=== PATIENT | female | born 2005 | race Caucasian/White ===

== ENCOUNTER 2025-02-17 23:20 | Emergency (ER) | payer MEDICAID, SELFPAY ==
[2025-02-18 00:02] VITALS: BP 109/64; BP 130/90; PULSE 105; PULSE 125; RESP 18; TEMP 37.1; O2SAT 95; O2SAT 98; BMI 22.7
[2025-02-18 00:05] LABS: UPreg QC Valid YES
[2025-02-18 00:15] LABS: MANUAL DIFF FLAG NO
[2025-02-18 00:16] LABS: Hematocrit 39.3 % (37.0-47.0); Hemoglobin 13.7 g/dl (12.0-16.0); Imm Gran Abs Auto 0.04 X10*3/uL (0.00-0.03); Imm Gran Pct Auto 0.4 % (0.0-0.4); Lymphocytes Absolute Auto 1.8 X10*3/uL (1.2-4.9); Mean Corpuscular HGB Conc 34.9 g/dl (31.0-35.0); Mean Corpuscular Hemoglobin 29.5 pg (27.0-33.0); Mean Corpuscular Volume 84.5 fL (80.0-98.0); NRBC Abs Auto 0.000 X10*3/uL (0.0-0.012); NRBC Pct Auto 0.0 /100WBC (0.0-0.2); Platelet Count 221 X10*3/uL (160-400); Red Blood Count 4.65 X10*6/uL (4.20-5.50); White Blood Count 9.7 X10*3/uL (4.8-10.8)
[2025-02-18 00:23] LABS: Cannabinoid Screen Urine Not Detected (Not Detect)
[2025-02-18 00:33] LABS: Acetaminophen LAB < 3 mcg/mL (<30); Alanine Aminotransferase 15 U/L (0-31); Albumin Level 4.5 g/dL (3.5-5.0); Alkaline Phosphatase 60 U/L (39-117); Anion Gap 11 (12-20); Aspartate Amino Transferase 21 U/L (5-31); Blood Urea Nitrogen 16 mg/dL (9-16); Calcium 9.0 mg/dL (8.4-10.2); Carbon Dioxide 22 mmol/L (22-29); Chloride 111 mmol/L (96-108); Creatinine Clr Calc Pharmacy 115.1; Estimated Glomerular Filt Rate > 60; Potassium 3.5 mmol/L (3.3-5.1); Salicylate < 5.0 mg/dL (15-30); Sodium 140 mmol/L (135-145); Total Protein 7.8 g/dL (6.5-8.0)
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
--- NOTE | 2025-02-18 05:39 | PC.NURSE ---
Pt has been sleeping most of the shift without issue. Changes positions independently as desired. Pt is easily arousable with verbal stimuli, startles easily. No needs verbalized at this time and no acute distress is observed. Safety checks continue every 15 min. Will continue to monitor for any changes. Care team evaluation pending.
[2025-02-18 07:56] VITALS: RESP 14
--- NOTE | 2025-02-18 07:59 | PC.NURSE ---
Assumed care of patient at 0645, patient appears to be in no apparent distress this am, resting comfortably on bed, offering no complaints to this RN. Continue plan of care for CARE team samanta
[2025-02-18 08:22] VITALS: BP 108/65; PULSE 85; RESP 16; TEMP 36.8; O2SAT 96
[2025-02-18 09:07] VITALS: BP 108/65; PULSE 85; RESP 16; TEMP 36.8; O2SAT 96
--- NOTE | 2025-02-18 10:36 | MHC.CARE ---
[facility] REFERRAL COMPLETE
== END 2025-02-18 09:40 | disposition home or self-care (01) ==
PROVIDERS: Emergency Provider Emergency Medicine
DX: R45.851 Suicidal ideations (principal); F41.1 Generalized anxiety disorder; F43.0 Acute stress reaction; Z51.81 Encounter for therapeutic drug level monitoring; Z79.899 Other long term (current) drug therapy
CPT/HCPCS: 36415; 80053; 80143; 80179; 80307; 81025; 85025; 99285; S9485